=== PATIENT | female | born 1990 | race Caucasian/White ===

== ENCOUNTER → 2019-12-03 15:42 | Outpatient (BNVA) | payer BC, SELFPAY | PROVIDERS: Family Provider Nurse Practitioner Family; Referring Provider Nurse Practitioner; Visit Provider Orthopaedic Surgery | DX: S89.91XA Unspecified injury of right lower leg, initial encounter (principal); X50.1XXA Overexertion from prolonged static or awkward postures, initial encounter; M25.561 Pain in right knee | CPT/HCPCS: 73560; 73565 ==

== ENCOUNTER → 2020-02-02 11:25 | Outpatient (BNVA) | payer BC, SELFPAY | PROVIDERS: Family Provider Nurse Practitioner Family; Visit Provider Obstetrics & Gynecology | DX: Z12.4 Encounter for screening for malignant neoplasm of cervix (principal); Z20.2 Contact with and (suspected) exposure to infections with a predominantly sexual mode of transmission | CPT/HCPCS: 86592; 87491; 87591; 87661; 87806; 88175 ==

== ENCOUNTER 2020-03-14 20:46 | Emergency (ER) | payer BC, SELFPAY ==
--- NOTE | 2020-03-14 20:49 | XR_ITS ---
WS: [id number] Exam: XR chest 1V portable [id number] Date/Time of Exam: 03/14/2020 9:13 PM Reason For Exam: sob No priors. Findings: The lungs are clear and fully expanded. Costophrenic angles are sharp. No infiltrates. Bronchovascula r relief appears normal. Cardiac silhouette is unremarkable. Bony elements are intact. XR/XR chest 1V portable [id number] IMPRESSION: Unremarkable chest radiograph.
[2020-03-14 20:54] VITALS: BP 136/86; PULSE 87; RESP 17; O2SAT 93
[2020-03-14 20:55] VITALS: BP 138/83; PULSE 103; RESP 14; TEMP 37; O2SAT 98; BMI 39.1
--- NOTE | 2020-03-14 21:11 | ED_ITS ---
HPI - General Adult General: Chief complaint: General Medical Stated complaint: CONGESTION/HEAD COLD Time Seen by Provider: 03/14/20 20:50 Source: patient Mode of arrival: ambulatory Limitations: no limitations History of Present Illness: HPI narrative: Regine is a nice 29-year-old female who comes in complaining of chest tightness and shortness of breath. Patient states that she has been on anxiety medicines for quite some time and has recently been weaned off these due to side effects. She states that she believes this is just severe anxiety. Patient does state that she has a history of brain lesions which are being worked up and she is anxious about that. She denies any chest pain other than she states at times she feels like her chest is tight when she is having a bad panic attack. She denies any leg pain or swelling. She denies history of PE or DVT. Patient does state that she has been exposed to Covid but it is a very remote exposure. It was from her boss that was positive over 5 weeks ago but other than that she has had no known exposures. Patient states when her anxiety gets this bad she is asked to slow her breathing down which does help otherwise she is unaware of any exacerbating or alleviating factors. Associated symptoms: Reports chest pain and palpitations; Deny dyspnea, headache(s), nausea, rash, syncope or vomiting Review of Systems Const: Denies: fever(s) Eyes: Denies: change in vision or blurry vision ENMT: Denies: throat pain, hoarseness or swelling of lips/tongue Card: Reports: chest pain and palpitations; Denies: syncope, pre-syncope or dyspnea on exertion Resp: Denies: dyspnea, productive cough, non-productive cough, wheezing, change in phlegm color or hemoptysis GI: Denies: abdominal pain, nausea, vomiting or diarrhea : Denies: flank pain, dysuria, urinary frequency or urinary urgency Musc: Denies: neck pain, back pain or extremity pain Skin/Breast: Denies: rash or pruritus Neuro: Denies: headache(s), numbness in extremities, weakness in extremities or dizziness Al/Lymph: Denies: easy bruising, easy bleeding, petechiae or purpura All/Imm: Denies: urticaria or throat swelling PFS ED PFSH: Medical History Anxiety Surgical History Hx of dilation and curettage (~2006) D&C of uterus Hx of tubal ligation (~2013) Family History Mother Uterine cancer Ovarian cancer Family/Other Uterine cancer Maternal Aunt Ovarian cancer Maternal Aunt Grandmother Uterine cancer Maternal Breast cancer Ovarian cancer Social History Smoking and tobacco status: current some day smoker cigarettes Packs smoked per day: 0.5 Alcohol intake: current Alcohol intake frequency: holidays/special occasions only Physical Exam Const: COMMON NORMALS: no acute distress, patient oriented x3, no limitations and alert GENERAL APPEARANCE: cooperative HENMT: COMMON NORMALS: normocephalic, atraumatic, external ears normal, EAC's normal and Normal external nose present HEAD & SCALP: normal to inspection, normocephalic and atraumatic FACE & SINUS: normal facial exam and face symmetric NOSE: Normal external nose present and Normal nares present EXTERNAL EAR: Yes external ears normal EXTERNAL AUDITORY CANAL: EAC's normal MOUTH: Normal oral and palatal mucosa present, lip normal and tongue normal Eye: COMMON NORMALS: Equal, round and reactive pupils present and conjunctivae normal GENERAL EYE: appearance normal, both eyes and all related structures ALIGNMENT: Yes alignment normal PERIORBITAL: periorbital findings normal EYELID: eyelids normal CONJUNCTIVA: Yes conjunctivae normal SCLERA: sclerae normal PUPIL: Yes Equal, round and reactive pupils present Neck/C-Spine: COMMON NORMALS: full ROM, no lymphadenopathy, supple, no meningeal signs and no JVD GENERAL: Yes normal visual inspection and Yes trachea midline Chest: COMMONS NORMALS: normal inspection of the chest and normal palpation of entire chest wall Resp: COMMON NORMALS: normal respiratory effort, No retractions, No use of accessory muscles and clear to auscultation bilaterally EFFORT & INSPECTION: Yes able to speak in complete sentences and Yes symmetric chest movement AUSCULTATION: clear to auscultation bilaterally, no crackles, no rales, no rhonchi and no wheezes Cardio: COMMON NORMALS: no JVD, regular rate, regular rhythm, S1 normal heart sound present and S2 normal heart sound present RATE: regular rate RHYTHM: regular rhythm HEART SOUNDS: S1 normal heart sound present, S2 normal heart sound present, no click, no gallops, no murmurs and no rubs GI: COMMON NORMALS: Soft to palpation and No hepatosplenomegaly present PALPATION: Yes Soft to palpation, No Tenderness to palpation present (GI), No Guarding due to palpation present (GI), No Rigid due to palpation, Yes No hepatosplenomegaly present, No Hernia present, No Palpable mass present and No Pulsatile mass present : COMMON NORMALS: Yes no CVA tenderness BLADDER/KIDNEY EXAM: Yes no CVA tenderness EXTERNAL FEMALE EXAM: No Hernia present Back/Pelvis: COMMON NORMALS: no CVA tenderness, thoracic and lumbar spine normal to inspection, no thoracic nor lumbar tenderness and thoraco-lumbar ROM normal Extremity: COMMON NORMALS: normal to inspection, full ROM, capillary refill normal, no joint enlargement, no clubbing, cyanosis or edema and no calf tenderness Neuro: COMMON NORMALS: patient oriented x3, CN's II-XII intact bilaterally, moves all extremities, no focal motor deficits and no sensory deficits noted SENSORIUM/ORIENTATION: Yes alert MENINGEAL SIGNS: Yes no meningeal signs SPEECH: speech normal Psych: COMMON NORMALS: mental status grossly normal, Normal thought process present, cooperative, normal affect, speech normal and activity/motor behavior normal SPEECH: Yes normal speech THOUGHT PROCESS: Normal thought process present Skin: COMMON NORMALS: no rashes or lesions noted, turgor normal, no jaundice, no petechiae and no mottling GENERAL SKIN EXAM: no rashes or lesions noted and turgor normal Course Vital Signs: Vital signs: Vital Signs Temperature 98.4 F 03/14/20 22:48 Pulse Rate 87 03/14/20 22:48 Respiratory Rate 17 03/14/20 22:48 Blood Pressure 133/85 03/14/20 22:48 Pulse Oximetry 93 03/14/20 22:48 MDM - General Adult MDM Narrative: Medical decision making narrative: Regine is a nice 29-year-old female who comes in complaining of an anxiety attack. This is a typical anxiety attack for her. Her EKG and cardiac work appears been unremarkable. She is low risk per the Wells criteria and she has negative D-dimer. Patient is relieved to hear everything is okay that does in itself make her feel better. She would like to go home at this time. She states that she needs to follow-up with her doctor as the anxiety medication she is taking is not working. I am going to give her a prescription for Atarax to see how that helps. She denies any other complaints or concerns at this time. I see no sign of pulmonary molluscum, acute coronary syndrome, lethal arrhythmia or otherwise. Patient does agree to return should her symptoms change or worsen. Lab Data: Labs: Lab Results 03/14/20 03/14/20 03/14/20 Range/Units 21:43 21:43 21:46 WBC 9.7 (4.0-10.0) 10^3/ uL RBC 4.38 (4.1-5.3) 10^6/u L Hgb 13.2 (11.5-15.3) g/dL Hct 39.7 (37.0-47.0) % MCV 90.6 (81-99) fL MCH 30.1 (28.0-34.0) pg MCHC 33.2 (30.0-36.0) g/dL RDW 12.2 (12.1-15.1) % Plt Count 349 (130-400) 10^3/c mm MPV 9.0 (7.4-10.4) fL Neut % (Auto) 70.7 % Lymph % (Auto) 21.9 % [place] % (Auto) 6.2 % Eos % (Auto) 0.6 % Baso % (Auto) 0.4 % Neut # (Auto) 6.86 (1.8-7.7) 10^3/u L Lymph # (Auto) 2.1 (0.8-4.8) 10^3/u L [place] # (Auto) 0.6 (0.2-0.9) 10^3/u L Eos # (Auto) 0.1 (0.0-0.8) 10^3/u L Baso # (Auto) 0.0 (0.0-0.1) 10^3/u L Nucleated RBC % (a uto) 0 % Nucleated RBCs # 0.0 /100WBC D-Dimer (0-0.59) ug/mIFE U Sodium (136-145) mmol/L Potassium (3.5-5.1) mmol/L Chloride (98-107) mmol/L Carbon Dioxide (22-29) mmol/L Anion Gap (5-19) BUN (6-20) mg/dL Creatinine (0.5-0.9) mg/dL GFR Calculation (90-130) mL/min Glucose (65-115) mg/dL Calculated Osmolal ity (285-295) mOsm/k g Calcium (8.5-10.5) mg/dL Magnesium (1.7-2.3) mg/dL Total Bilirubin (0.15-1.2) mg/dL AST (0-32) U/L ALT (0-33) U/L Alkaline Phosphata se (35-105) IU/L Total Protein (6.6-8.7) g/dL Albumin (3.5-5.2) g/dL Globulin (1.3-4.6) g/dL HCG, Qual (Negative) Urine Color Straw (Yellow) Urine Appearance Hazy A (CLEAR) Urine pH 5 (5-7) Ur Specific Gravit y 1.015 (1.005-1.030) Urine Protein Neg (Negative) Urine Glucose (UA) Norm (Normal) Urine Ketones Negative (Negative) Urine Blood 3+ H (Negative) Urine Nitrate Negative (Negative) Urine Bilirubin Neg (Negative) Urine Urobilinogen Norm (Negative) mg/dL Ur Leukocyte Nica ase 1+ H (Negative) Urine RBC 5-10 H (0-2) /hpf Urine WBC 0-4 H (0-5) /hpf Ur Squamous Epith Cells 5-10 H (0-5) /hpf Amorphous Sediment Not Reportable Urine Bacteria Trace (NONE) /hpf Influenza Type A A g Negative (Negative) Influenza Type B A g Negative (Negative) SARS-CoV-2 Ag (Rap id) (Negative) 03/14/20 03/14/20 03/14/20 Range/Units 21:46 21:46 21:46 WBC (4.0-10.0) 10^3/ uL RBC (4.1-5.3) 10^6/u L Hgb (11.5-15.3) g/dL Hct (37.0-47.0) % MCV (81-99) fL MCH (28.0-34.0) pg MCHC (30.0-36.0) g/dL RDW (12.1-15.1) % Plt Count (130-400) 10^3/c mm MPV (7.4-10.4) fL Neut % (Auto) % Lymph % (Auto) % [place] % (Auto) % Eos % (Auto) % Baso % (Auto) % Neut # (Auto) (1.8-7.7) 10^3/u L Lymph # (Auto) (0.8-4.8) 10^3/u L [place] # (Auto) (0.2-0.9) 10^3/u L Eos # (Auto) (0.0-0.8) 10^3/u L Baso # (Auto) (0.0-0.1) 10^3/u L Nucleated RBC % (a uto) % Nucleated RBCs # /100WBC D-Dimer (0-0.59) ug/mIFE U Sodium 138 (136-145) mmol/L Potassium 3.4 L (3.5-5.1) mmol/L Chloride 101 (98-107) mmol/L Carbon Dioxide 25 (22-29) mmol/L Anion Gap 15.4 (5-19) BUN 14 (6-20) mg/dL Creatinine 0.7 (0.5-0.9) mg/dL GFR Calculation 99.6 (90-130) mL/min Glucose 102 (65-115) mg/dL Calculated Osmolal ity 287 (285-295) mOsm/k g Calcium 9.6 (8.5-10.5) mg/dL Magnesium 2.1 (1.7-2.3) mg/dL Total Bilirubin 0.2 (0.15-1.2) mg/dL AST 22 (0-32) U/L ALT 25 (0-33) U/L Alkaline Phosphata se 91 (35-105) IU/L Total Protein 8.0 (6.6-8.7) g/dL Albumin 5.0 (3.5-5.2) g/dL Globulin 3.0 (1.3-4.6) g/dL HCG, Qual Negative (Negative) Urine Color (Yellow) Urine Appearance (CLEAR) Urine pH (5-7) Ur Specific Gravit y (1.005-1.030) Urine Protein (Negative) Urine Glucose (UA) (Normal) Urine Ketones (Negative) Urine Blood (Negative) Urine Nitrate (Negative) Urine Bilirubin (Negative) Urine Urobilinogen (Negative) mg/dL Ur Leukocyte Nica ase (Negative) Urine RBC (0-2) /hpf Urine WBC (0-5) /hpf Ur Squamous Epith Cells (0-5) /hpf Amorphous Sediment Urine Bacteria (NONE) /hpf Influenza Type A A g (Negative) Influenza Type B A g (Negative) SARS-CoV-2 Ag (Rap id) Negative (Negative) 03/14/20 Range/Units 21:46 WBC (4.0-10.0) 10^3/ uL RBC (4.1-5.3) 10^6/u L Hgb (11.5-15.3) g/dL Hct (37.0-47.0) % MCV (81-99) fL MCH (28.0-34.0) pg MCHC (30.0-36.0) g/dL RDW (12.1-15.1) % Plt Count (130-400) 10^3/c mm MPV (7.4-10.4) fL Neut % (Auto) % Lymph % (Auto) % [place] % (Auto) % Eos % (Auto) % Baso % (Auto) % Neut # (Auto) (1.8-7.7) 10^3/u L Lymph # (Auto) (0.8-4.8) 10^3/u L [place] # (Auto) (0.2-0.9) 10^3/u L Eos # (Auto) (0.0-0.8) 10^3/u L Baso # (Auto) (0.0-0.1) 10^3/u L Nucleated RBC % (a uto) % Nucleated RBCs # /100WBC D-Dimer <= 0.27 (0-0.59) ug/mIFE U Sodium (136-145) mmol/L Potassium (3.5-5.1) mmol/L Chloride (98-107) mmol/L Carbon Dioxide (22-29) mmol/L Anion Gap (5-19) BUN (6-20) mg/dL Creatinine (0.5-0.9) mg/dL GFR Calculation (90-130) mL/min Glucose (65-115) mg/dL Calculated Osmolal ity (285-295) mOsm/k g Calcium (8.5-10.5) mg/dL Magnesium (1.7-2.3) mg/dL Total Bilirubin (0.15-1.2) mg/dL AST (0-32) U/L ALT (0-33) U/L Alkaline Phosphata se (35-105) IU/L Total Protein (6.6-8.7) g/dL Albumin (3.5-5.2) g/dL Globulin (1.3-4.6) g/dL HCG, Qual (Negative) Urine Color (Yellow) Urine Appearance (CLEAR) Urine pH (5-7) Ur Specific Gravit y (1.005-1.030) Urine Protein (Negative) Urine Glucose (UA) (Normal) Urine Ketones (Negative) Urine Blood (Negative) Urine Nitrate (Negative) Urine Bilirubin (Negative) Urine Urobilinogen (Negative) mg/dL Ur Leukocyte Ncia ase (Negative) Urine RBC (0-2) /hpf Urine WBC (0-5) /hpf Ur Squamous Epith Cells (0-5) /hpf Amorphous Sediment Urine Bacteria (NONE) /hpf Influenza Type A A g (Negative) Influenza Type B A g (Negative) SARS-CoV-2 Ag (Rap id) (Negative) Imaging Data^: CXR: Attestation: I personally reviewed and interpreted this imaging study as follows: My impression: No acute cardiopulmonary findings. EKG Data^: EKG 1: Attestation: I personally reviewed and interpreted this EKG as follows: EKG interpretation date: 03/14/20 EKG interpretation time: 21:38 Interpretation: Normal sinus rhythm with first-degree AV block, normal QTC, normal axis, PVCs noted, otherwise no acute ST or T wave changes. Discharge Plan Discharge Patient Disposition: Home Clinical Impression: Anxiety Condition: Stable Prescriptions: New hydroxyzine HCl 25 mg tablet 25 mg PO Q6H PRN (Reason: anxiety) Qty: 30 RF: 0 No Action escitalopram oxalate 5 mg tablet 5 mg PO DAILY RF: 0 Discharge Orders: Discharge Order (Routine); Ordered 03/14/20 Ordered By: Beverly Webb Referrals: [facility], [Staff Physician] - 1-3 days Discharge Diet: Usual diet Discharge Activity: Resume usual activity Patient Instructions: Anxiety (ED) Activity Restrictions/Additional Instructions: Please return to the ER immediately for any of the signs or symptoms listed on your discharge instruction sheets, worsening/changing of your symptoms, you are not getting better as quickly as expected, or for ANY other cause or concerns. If your symptoms change or worsen in any way please return to the ER immediately for recheck. Discharge Date/Time: 03/14/20 22:48 Coding Level of Care Code ED Mechanical Service Specialist for Chg Fwd Exam Comprehensive
--- NOTE | 2020-03-14 21:13 | ECG_ITS ---
[facility] Test Date: 2020-03-14 Pat Name: Regine Ortiz Department: Room: Gender: Female Change Number Operator: : 1990 Requested By: Beverly Sadler Order Number: [id number] Wilkinson MD: Carmen Ashby M.D. Measurements Intervals [place] Rate: 85 P: 55 NV: 232 QRS: 87 QRSD: 103 T: 49 QT: 386 QTc: 460 Interpretive Statements SINUS RHYTHM WITH FIRST DEGREE AV BLOCK WITH OCCASIONAL VENTRICULAR PREMATURE COMPLEXES WARNING: DATA QUALITY MAY AFFECT INTERPRETATION No previous ECG available for comparison Electronically Signed On 03-15-2020 7:15:01 CDT by Carmen Ashby M.D. [email or web address]
[2020-03-14] MEDS: sodium chloride 0.9% 1,000 ML 999 ML IV (21:25)
[2020-03-14 21:58] LABS: Basophils % 0.4 %; Eosinophils # 0.1 10^3/uL (0.0-0.8); Eosinophils % 0.6 %; Hematocrit 39.7 % (37.0-47.0); Hemoglobin 13.2 g/dL (11.5-15.3); Lymphocytes # 2.1 10^3/uL (0.8-4.8); Lymphocytes % 21.9 %; Mean Corpuscular HGB Conc 33.2 g/dL (30.0-36.0); Mean Corpuscular Hemoglobin 30.1 pg (28.0-34.0); Mean Corpuscular Volume 90.6 fL (81-99); Monocytes # 0.6 10^3/uL (0.2-0.9); Monocytes % 6.2 %; Neutrophils # 6.86 10^3/uL (1.8-7.7); Neutrophils % 70.7 %; Nucleated Red Blood Cells % 0 %; Platelet Count 349 10^3/cmm (130-400); Red Blood Count 4.38 10^6/uL (4.1-5.3); Red Cell Distribution Width 12.2 % (12.1-15.1); White Blood Count 9.7 10^3/uL (4.0-10.0)
[2020-03-14 22:13] LABS: Add Urine Microscopic? YES; Bilirubin Urine Neg (Negative); Blood Urine 3+ (Negative); Glucose Urine UA Norm (Normal); Ketones Urine Negative (Negative); Leukocyte Esterase Urine 1+ (Negative); Nitrate Urine Negative (Negative); Protein Urine Neg (Negative); Specific Gravity, Urine 1.015 (1.005-1.030); Urine Appearance Hazy (CLEAR); Urine Color Straw (Yellow); Urobilinogen Urine Norm (Negative); pH Urine 5 (5-7)
[2020-03-14 22:22] LABS: HCG, Serum Qual Negative (Negative)
[2020-03-14 22:24] LABS: Add Urine Culture? No; Bacteria Urine TRACE /hpf; WBC Urine 0-4 /hpf (0-5)
[2020-03-14 22:25] LABS: Alanine Aminotransferase 25 U/L (0-33); Alkaline Phosphatase 91 IU/L (35-105); Anion Gap 15.4 (5-19); Aspartate Amino Transferase 22 U/L (0-32); Blood Urea Nitrogen 14 mg/dL (6-20); Calcium 9.6 mg/dL (8.5-10.5); Carbon Dioxide 25 mmol/L (22-29); Chloride 101 mmol/L (98-107); Glomerular Filtration Rate 99.6 mL/min (90-130); Glucose 102 mg/dL (65-115); Magnesium 2.1 mg/dL (1.7-2.3); Osmolality Calculated 287 mOsm/kg (285-295); Potassium 3.4 mmol/L (3.5-5.1); Sodium 138 mmol/L (136-145); Total Bilirubin 0.2 mg/dL (0.15-1.2)
[2020-03-14 22:27] LABS: D Dimer <= 0.27 ug/mIFEU (0-0.59)
[2020-03-14 22:30] LABS: Influenza A by IFA Negative (Negative); Influenza B by IFA Negative (Negative)
[2020-03-14 22:31] LABS: SARS Covid-2 Antigen Negative (Negative)
[2020-03-14 22:48] VITALS: BP 133/85; PULSE 87; RESP 17; TEMP 36.9; O2SAT 93
--- NOTE | 2020-03-14 22:52 | PC.NURSE ---
Patient discharged before lorazepam prescription entered.
== END 2020-03-14 22:48 | disposition home or self-care (01) ==
PROVIDERS: Emergency Provider Emergency Medicine
DX: F41.9 Anxiety disorder, unspecified (principal); F17.210 Nicotine dependence, cigarettes, uncomplicated
CPT/HCPCS: 12345; 71045; 80053; 81001; 83735; 84703; 85025; 85378; 87040; 87426; 87804; 93005; 96360; 99284; J7030

== ENCOUNTER 2020-05-25 11:54 | Emergency (ER) | payer BC, SELFPAY ==
[2020-05-25] VITALS (7 sets, daily range): BP systolic 129–145; BP diastolic 73–87; PULSE 77–119; RESP 14–18; TEMP 36.8; O2SAT 97–100; BMI 40.5
--- NOTE | 2020-05-25 12:05 | W.ED.COVID ---
HPI - COVID General: Chief Complaint: COVID symptoms Stated Complaint: body aches, congestion, chills Time Seen by Provider: 05/25/20 12:04 Source: patient Mode of arrival: ambulatory Limitations: no limitations Triage information: Has fever, cough or shortness of breath. Exposure to COVID + person last 14 days History of Present Illness: HPI Narrative: Patient is a 30-year-old female who presents to ED today with a complaint of right lower chest pain, shortness of breath, chills, and body aches. She has had positive COVID exposure. She had a rapid test performed recently which was negative. Patient tells me she was seen by urgent care and referred to the emergency department. Patient tells me she does have a history of anxiety and states she is not sure if her symptoms are related to anxiety or because of COVID. She has not been running fevers. She is an otherwise healthy 30-year-old. MD complaint: reported COVID exposure COVID 19 common symptoms: positive chills, non-productive cough, dyspnea, fatigue and body aches; negative fever(s), headache(s), throat pain, nausea, vomiting or diarrhea COVID 19 other sytmptoms: positive chest pain COVID Results: SARS-CoV-2 Antigen (Rapid) Negative (Negative) 03/14/20 21:46 03/14/20 SARS-CoV-2 RNA (RT-PCR) Pending 05/25/20 12:55 05/25/20 Review of Systems Const: Reports: chills, body aches and fatigue; Denies: fever(s), change in appetite, change in weight or malaise ENMT: Denies: throat pain or odynophagia Card: Reports: chest pain and orthopnea; Denies: palpitations, irregular heart rhythm, edema, swelling of feet/ankles, lightheadedness, syncope, pre-syncope, dyspnea on exertion or leg pain with exertion Resp: Reports: dyspnea and non-productive cough; Denies: hemoptysis GI: Denies: abdominal pain, nausea, vomiting or diarrhea : Denies: flank pain, difficulty voiding, dysuria, urinary frequency or urinary urgency Musc: Denies: neck pain, back pain, extremity pain, extremity swelling, joint pain or joint swelling Skin/Breast: Denies: rash Neuro: Denies: headache(s), numbness in extremities, weakness in extremities or sensory changes PFSH ED PFSH: Medical History (Updated 03/14/20 @ 22:39 by Beverly Webb) Anxiety Surgical History Hx of dilation and curettage (~2006) D&C of uterus Hx of tubal ligation (~2013) Family History Mother Uterine cancer Ovarian cancer Family/Other Uterine cancer Maternal Aunt Ovarian cancer Maternal Aunt Grandmother Uterine cancer Maternal Breast cancer Ovarian cancer Social History (Updated 05/25/20 @ 12:04 by Avtar Pickard RN) Smoking and tobacco status: current some day smoker cigarettes Packs smoked per day: 0.5 Alcohol intake: current Alcohol intake frequency: holidays/special occasions only Alcohol type: wine Substance/Drug Use: never Physical Exam Const: COMMON NORMALS: no acute distress, average body habitus, patient oriented x3, no limitations, healthy appearing, alert and well nourished HENMT: COMMON NORMALS: normocephalic and atraumatic HEAD & SCALP: normocephalic and atraumatic FACE & SINUS: normal facial exam THROAT: posterior oropharynx normal, tonsils normal and uvula midline Neck/C-Spine: COMMON NORMALS: no lymphadenopathy Resp: COMMON NORMALS: normal respiratory effort and clear to auscultation bilaterally EFFORT & INSPECTION: Yes able to speak in complete sentences AUSCULTATION: clear to auscultation bilaterally Cardio: COMMON NORMALS: regular rate and regular rhythm RATE: regular rate RHYTHM: regular rhythm GI: COMMON NORMALS: Normal to inspection, nondistended, normoactive bowel sounds present, Soft to palpation, non-tender, No hepatosplenomegaly present and no masses PALPATION: Yes Soft to palpation and Yes No hepatosplenomegaly present : COMMON NORMALS: Yes no CVA tenderness BLADDER/KIDNEY EXAM: Yes no CVA tenderness Back/Pelvis: COMMON NORMALS: no CVA tenderness Neuro: COMMON NORMALS: patient oriented x3 SENSORIUM/ORIENTATION: Yes alert Psych: COMMON NORMALS: mental status grossly normal, cooperative and speech normal APPEARANCE: Yes grossly normal SPEECH: Yes normal speech Skin: COMMON NORMALS: no rashes or lesions noted GENERAL SKIN EXAM: no rashes or lesions noted Course Vital Signs: Vital signs: Vital Signs Temperature 98.2 F 05/25/20 11:58 Pulse Rate 77 05/25/20 12:26 Respiratory Rate 18 05/25/20 13:26 Blood Pressure 145/87 05/25/20 12:26 Pulse Oximetry 100 05/25/20 12:27 MDM - COVID MDM Narrative: Medical decision making narrative: Patient appears non-ill and nontoxic. She is in no respiratory distress. She is not tachycardic, tachypneic or hypoxic. Her CXR is normal. Obtained PCR testing on today's visit. Labs are nonconcerning at this time. Patient does not qualify for monoclonal antibody treatment. Recommend conservative management at home and quarantine. Lab Data: Labs: Lab Results 05/25/20 05/25/20 Range/Units 14:00 14:00 WBC 7.0 (4.0-10.0) 10^3/ uL RBC 4.65 (4.1-5.3) 10^6/u L Hgb 14.0 (11.5-15.3) g/dL Hct 42.8 (37.0-47.0) % MCV 92.0 (81-99) fL MCH 30.1 (28.0-34.0) pg MCHC 32.7 (30.0-36.0) g/dL RDW 12.1 (12.1-15.1) % Plt Count 342 (130-400) 10^3/c mm MPV 8.9 (7.4-10.4) fL Neut % (Auto) 73.0 % Lymph % (Auto) 17.1 % [place] % (Auto) 7.6 % Eos % (Auto) 1.3 % Baso % (Auto) 0.6 % Neut # (Auto) 5.09 (1.8-7.7) 10^3/u L Lymph # (Auto) 1.2 (0.8-4.8) 10^3/u L [place] # (Auto) 0.5 (0.2-0.9) 10^3/u L Eos # (Auto) 0.1 (0.0-0.8) 10^3/u L Baso # (Auto) 0.0 (0.0-0.1) 10^3/u L Nucleated RBC % (a uto) 0 % Nucleated RBCs # 0.0 /100WBC Sodium 136 (136-145) mmol/L Potassium 4.3 (3.5-5.1) mmol/L Chloride 102 (98-107) mmol/L Carbon Dioxide 25 (22-29) mmol/L Anion Gap 13.3 (5-19) BUN 11 (6-20) mg/dL Creatinine 0.7 (0.5-0.9) mg/dL GFR Calculation 98.9 (90-130) mL/min Glucose 107 (65-115) mg/dL Calculated Osmolal ity 282 L (285-295) mOsm/k g Calcium 9.6 (8.5-10.5) mg/dL Total Bilirubin 0.4 (0.15-1.2) mg/dL AST 22 (0-32) U/L ALT 24 (0-33) U/L Alkaline Phosphata se 86 (35-105) IU/L Total Protein 7.4 (6.6-8.7) g/dL Albumin 4.5 (3.5-5.2) g/dL Globulin 2.9 (1.3-4.6) g/dL Imaging Data: CXR: Radiologist's impression: [address] [place] [address] XRay Report Signed Patient: Regine Ortiz #: [id number] : 1990Acct#:[id number] Age/Sex: 30 / FADM Date: 05/25/20 [facility] Attending Dr: Ordering Provider/Ordering MD: Ginger Trujillo Date of Service: 05/25/20 Procedure(s): XR chest 1V portable [id number] Accession Number(s): [id number] Report Number: [id number] WS: [id number] Portable AP upright chest, 05/25/2020 Clinical Data: SOB, chest pain Comparison: Portable chest, 03/14/2020. Findings: No nodules, masses or effusions are seen. The heart is normal. The pulmonary vascularity is not increased. No pneumonia or pneumothorax is seen. There is a small electronic device overlying the upper chest. XR/XR chest 1V portable [id number] Impression: Negative chest. Dictated By:Natalya Farrar MD Signed By:Natalya Farrar MDSigned Date/Time:05/25/20 1301 DD/ 1300 COVID Results: SARS-CoV-2 Antigen (Rapid) Negative (Negative) 03/14/20 21:46 03/14/20 SARS-CoV-2 RNA (RT-PCR) Pending 05/25/20 12:55 05/25/20 Discharge Plan Discharge Prescriptions: No Action escitalopram oxalate 5 mg tablet 5 mg PO DAILY@0800 RF: 0 Mucinex See Rx Instructions .ROUTE .COMPLEX RF: 0 Coding Level of Care Code ED Cad Engineer for Chg Fwd Exam Comprehensive
--- NOTE | 2020-05-25 12:35 | XR_ITS ---
WS: [id number] Portable AP upright chest, 05/25/2020 Clinical Data: SOB, chest pain Comparison: Portable chest, 03/14/2020. Findings: No nodules, masses or effusions are seen. The heart is normal. The pulmonary vascularity is not increased. No pneumonia or pneumothorax is seen. There is a small electronic device overlying th e upper chest. XR/XR chest 1V portable [id number] Impression: Negative chest.
[2020-05-25 14:12] LABS: Basophils % 0.6 %; Eosinophils # 0.1 10^3/uL (0.0-0.8); Eosinophils % 1.3 %; Hematocrit 42.8 % (37.0-47.0); Lymphocytes # 1.2 10^3/uL (0.8-4.8); Lymphocytes % 17.1 %; Mean Corpuscular HGB Conc 32.7 g/dL (30.0-36.0); Mean Corpuscular Hemoglobin 30.1 pg (28.0-34.0); Mean Platelet Volume 8.9 fL (7.4-10.4); Monocytes # 0.5 10^3/uL (0.2-0.9); Monocytes % 7.6 %; Neutrophils # 5.09 10^3/uL (1.8-7.7); Nucleated Red Blood Cells % 0 %; Platelet Count 342 10^3/cmm (130-400); Red Blood Count 4.65 10^6/uL (4.1-5.3); Red Cell Distribution Width 12.1 % (12.1-15.1)
[2020-05-25 14:57] LABS: Alanine Aminotransferase 24 U/L (0-33); Albumin Level 4.5 g/dL (3.5-5.2); Alkaline Phosphatase 86 IU/L (35-105); Aspartate Amino Transferase 22 U/L (0-32); Blood Urea Nitrogen 11 mg/dL (6-20); Calcium 9.6 mg/dL (8.5-10.5); Carbon Dioxide 25 mmol/L (22-29); Chloride 102 mmol/L (98-107); Creatinine Clr Calc Pharmacy 151.8601; Globulin 2.9 g/dL (1.3-4.6); Glomerular Filtration Rate 98.9 mL/min (90-130); Glucose 107 mg/dL (65-115); Osmolality Calculated 282 mOsm/kg (285-295); Sodium 136 mmol/L (136-145); Total Bilirubin 0.4 mg/dL (0.15-1.2); Total Protein 7.4 g/dL (6.6-8.7)
[2020-05-25 14:58] LABS: Anion Gap 13.3 (5-19); Potassium 4.3 mmol/L (3.5-5.1)
[2020-05-26 16:08] LABS: Quest SARS-CoV-2 RNA NOT DETECTED (NOT DETECTED)
--- NOTE | 2020-05-27 10:45 | PC.NURSE ---
pt notified of negative COVID results
== END 2020-05-25 15:18 | disposition home or self-care (01) ==
PROVIDERS: Emergency Provider Physician Assistant; PCP Nurse Practitioner
DX: R07.9 Chest pain, unspecified (principal); F17.210 Nicotine dependence, cigarettes, uncomplicated
CPT/HCPCS: 12345; 71045; 80053; 85025; 87635; 99282; 99283

== ENCOUNTER → 2020-08-16 10:26 | Outpatient (BNVA) | payer BC, SELFPAY | PROVIDERS: PCP Nurse Practitioner; Referring Provider Nurse Practitioner; Visit Provider Specialist | DX: G37.9 Demyelinating disease of central nervous system, unspecified (principal); G43.909 Migraine, unspecified, not intractable, without status migrainosus; R20.0 Anesthesia of skin; R20.2 Paresthesia of skin; G47.30 Sleep apnea, unspecified; R42 Dizziness and giddiness; F17.210 Nicotine dependence, cigarettes, uncomplicated | CPT/HCPCS: 99205 ==

== ENCOUNTER → 2021-01-31 12:06 | Outpatient (BNVA) | payer BC, SELFPAY | PROVIDERS: PCP Nurse Practitioner; Visit Provider Nurse Practitioner Family | DX: Z20.828 Contact with and (suspected) exposure to other viral communicable diseases (principal); J06.9 Acute upper respiratory infection, unspecified; Z20.822 Contact with and (suspected) exposure to COVID-19 | CPT/HCPCS: 87426 ==

== ENCOUNTER → 2021-02-22 14:00 | Outpatient (BNVA) | payer BC, SELFPAY | PROVIDERS: PCP Nurse Practitioner; Visit Provider Nurse Practitioner Family | DX: F41.9 Anxiety disorder, unspecified (principal); R00.2 Palpitations; R53.83 Other fatigue; L65.9 Nonscarring hair loss, unspecified; I10 Essential (primary) hypertension | CPT/HCPCS: 80053; 82306; 82607; 83036; 84439; 84443; 84481 ==

== ENCOUNTER → 2021-04-04 09:55 | Outpatient (BNVA) | payer BC, SELFPAY | PROVIDERS: PCP Nurse Practitioner Family; Visit Provider Nurse Practitioner Family | DX: R30.0 Dysuria (principal) | CPT/HCPCS: 81000 ==

== ENCOUNTER → 2021-04-06 09:25 | Outpatient (BNVA) | payer BC, SELFPAY | PROVIDERS: PCP Nurse Practitioner Family; Visit Provider Family Medicine Adult Medicine | DX: Z20.822 Contact with and (suspected) exposure to COVID-19 (principal); R05.8 Other specified cough | CPT/HCPCS: 87635 ==

== ENCOUNTER 2021-04-12 13:05 | Outpatient (CLI) | payer BC, SELFPAY ==
[2021-04-12 13:16] VITALS: BP 139/92; PULSE 118; RESP 18; TEMP 36.5; O2SAT 96; BMI 48.2
[2021-04-12 13:44] VITALS: BP 129/82; PULSE 109; RESP 18; TEMP 37.1; O2SAT 99
[2021-04-12 14:42] VITALS: BP 118/79; PULSE 103; RESP 18; TEMP 36.7; O2SAT 98
== END 2021-04-12 13:06 | disposition home or self-care (01) ==
LOC: OPS 13:06
PROVIDERS: PCP Nurse Practitioner Family; Visit Provider Nurse Practitioner Family
DX: U07.1 COVID-19 (principal)
CPT/HCPCS: 96365

== ENCOUNTER 2021-09-16 05:18 | Emergency (ER) | payer BC, SELFPAY ==
[2021-09-16 05:19] VITALS: BP 148/100; PULSE 111; RESP 18; TEMP 36.8; O2SAT 100; BMI 38.5
--- NOTE | 2021-09-16 05:35 | PC.NURSE ---
Pt. states that she seen her doctor today for the dental infection and that she takes medication for anxiety already. I asked if she asked for new medication for her anxiety and she said no. Pt. states that on the ride to the hospital in the ambulance she had a panic attack.
--- NOTE | 2021-09-16 05:38 | ED_ITS ---
HPI - Anxiety General: Chief Complaint: Anxiety Stated Complaint: Anxiety Time Seen by Provider: 09/16/21 05:24 Source: patient History of Present Illness: 31-year-old female who states she has had problems with mouth infections for the past couple of months. She has been on antibiotics for time she says. She was last on clindamycin finishing a week ago. She notes that she felt good for a few days, but then began to get mouth pain and throbbing along with shaking chills at times a couple of days ago. She was in her car on the way to urgent care this morning, when her heart began to race. She notes that she got short of breath. She believes she had a panic attack. She called an ambulance. Her symptoms are improved on arrival. MD complaint: anxiety Onset (ago): minute(s) Symptoms: dyspnea and palpitations Severity: moderate Quality: constant Place: other History of similar episodes: Yes Provoking factors: other Relieving factors: deep breaths Exacerbating factors: nothing Associated symptoms: Reports fever(s), nausea and short of breath; Deny chest pain, confusion, syncope, vomiting or weakness Review of Systems Const: Reports: fever(s) ENMT: Reports: oral sores and dental pain; Denies: throat pain or swelling of lips/tongue Card: Denies: chest pain or syncope GI: Reports: nausea; Denies: vomiting Musc: Denies: neck pain Neuro: Denies: confusion Psych: Reports: anxiety [facility] ED PFSH: Medical History Anxiety Cough with exposure to COVID-19 virus Pos COVID test 04/06/2021 COVID-19 Hypertension Surgical History Hx of dilation and curettage (~2006) D&C of uterus Hx of tubal ligation (~2013) Family History Mother Uterine cancer Ovarian cancer Family/Other Uterine cancer Maternal Aunt Ovarian cancer Maternal Aunt Grandmother Uterine cancer Maternal Breast cancer Ovarian cancer Social History Smoking and tobacco status: former smoker Second hand smoke exposure: No Smoking risk assessment/counseling performed?: Yes Tobacco counseling given: provider counseling and counseling >3 minutes Other tobacco screening/counseling details: Working on reducing tobacco use. Alcohol intake: current Alcohol intake frequency: holidays/special occasions only Alcohol type: wine Caregiver/support person: No Lives independently: Yes Household members: family Current occupational status: employed History of recent travel: No Physical Exam Const: GENERAL APPEARANCE: cooperative; not ill appearing and not frail appearing HENMT: COMMON NORMALS: normocephalic, atraumatic and Normal external nose present HEAD & SCALP: normocephalic and atraumatic FACE & SINUS: normal facial exam and face symmetric NOSE: Normal external nose present and Normal nares present MOUTH: lip normal and tongue normal TEETH & GINGIVA: Yes abnormal tooth and associated gingiva (Mild swelling noted around left bottom posterior molar) THROAT: posterior oropharynx normal Eye: COMMON NORMALS: Equal, round and reactive pupils present and EOMs intact bilaterally PUPIL: Yes Equal, round and reactive pupils present Resp: COMMON NORMALS: normal respiratory effort, No use of accessory muscles and clear to auscultation bilaterally AUSCULTATION: clear to auscultation bilaterally Cardio: COMMON NORMALS: regular rate and regular rhythm RATE: regular rate RHYTHM: regular rhythm GI: COMMON NORMALS: Normal to inspection, nondistended, normoactive bowel sounds present Course Vital Signs: Vital signs: Vital Signs Temperature 98.2 F 09/16/21 05:19 Pulse Rate 111 H 09/16/21 05:19 Respiratory Rate 18 09/16/21 05:19 Blood Pressure 138/98 09/16/21 06:31 Pulse Oximetry 98 09/16/21 06:31 MDM - Anxiety Medical Decision Making Patient with self-proclaimed symptoms of panic attack. Her potassium is mildly low. White blood cell count is 10.5. CRP is minimally elevated. Labs are otherwise not remarkable. Patient has minimal evidence of. Periodontitis. she will be covered with antibiotics, and allowed discharge Lab Data : 09/16/21 05:25 09/16/21 05:25 Laboratory Results WBC 10.5 10^3/uL (4.0-10.0) H 09/16/21 05:25 RBC 4.49 10^6/uL (4.1-5.3) 09/16/21 05:25 Hgb 13.2 g/dL (11.5-15.3) 09/16/21 05:25 Hct 39.2 % (37.0-47.0) 09/16/21 05:25 MCV 87.3 fl (81-99) 09/16/21 05:25 MCH 29.4 pg (28.0-34.0) 09/16/21 05:25 MCHC 33.7 g/dL (30.0-36.0) 09/16/21 05:25 RDW 12.0 % (12.1-15.1) L 09/16/21 05:25 Plt Count 290 10^3/cmm (130-400) 09/16/21 05:25 MPV 9.2 fL (7.4-10.4) 09/16/21 05:25 Neut % (Auto) 68.1 % 09/16/21 05:25 Lymph % (Auto) 23.6 % 09/16/21 05:25 [place] % (Auto) 7.0 % 09/16/21 05:25 Eos % (Auto) 0.7 % 09/16/21 05:25 Baso % (Auto) 0.3 % 09/16/21 05:25 Neut # (Auto) 7.15 10^3/uL (1.8-7.7) 09/16/21 05:25 Lymph # (Auto) 2.5 10^3/uL (0.8-4.8) 09/16/21 05:25 Jennings # (Auto) 0.7 10^3/uL (0.2-0.9) 09/16/21 05:25 Eos # (Auto) 0.1 10^3/uL (0.0-0.8) 09/16/21 05:25 Baso # (Auto) 0.0 10^3/uL (0.0-0.1) 09/16/21 05:25 Nucleated RBC % (auto) 0 % 09/16/21 05:25 Nucleated RBCs # 0.0 /100WBC 09/16/21 05:25 Sodium 138 mmol/L (136-145) 09/16/21 05:25 Potassium 3.4 mmol/L (3.5-5.1) L 09/16/21 05:25 Chloride 101 mmol/L (98-107) 09/16/21 05:25 Carbon Dioxide 21 mmol/L (22-29) L 09/16/21 05:25 Anion Gap 19.4 (5-19) H 09/16/21 05:25 BUN 12 mg/dL (6-20) 09/16/21 05:25 Creatinine 0.7 mg/dL (0.5-0.9) 09/16/21 05:25 GFR Calculation 98.3 mL/min (90-130) 09/16/21 05:25 Glucose 117 mg/dL (65-115) H 09/16/21 05:25 Calculated Osmolality 287 mOsm/kg (285-295) 09/16/21 05:25 Calcium 8.9 mg/dL (8.5-10.5) 09/16/21 05:25 Total Bilirubin 0.4 mg/dL (0.15-1.2) 09/16/21 05:25 AST 15 U/L (0-32) 09/16/21 05:25 ALT 18 U/L (0-33) 09/16/21 05:25 Alkaline Phosphatase 87 IU/L (35-105) 09/16/21 05:25 C-Reactive Protein 8.4 mg/L (0.0-4.9) H 09/16/21 05:25 Total Protein 7.9 g/dL (6.6-8.7) 09/16/21 05:25 Albumin 5.1 g/dL (3.5-5.2) 09/16/21 05:25 Globulin 2.8 g/dL (1.3-4.6) 09/16/21 05:25 Procalcitonin 0.08 ng/mL (0-0.5) 09/16/21 05:25 Urine Color Yellow (Yellow) 09/16/21 05:54 Urine Appearance Clear (CLEAR) 09/16/21 05:54 Urine pH 6.5 (5-7) 09/16/21 05:54 Ur Specific [place] 1.015 (1.005-1.030) 09/16/21 05:54 Urine Protein Neg (Negative) 09/16/21 05:54 Urine Glucose (UA) Norm (Normal) 09/16/21 05:54 Urine Ketones Negative (Negative) 09/16/21 05:54 Urine Blood Neg (Negative) 09/16/21 05:54 Urine Nitrate Negative (Negative) 09/16/21 05:54 Urine Bilirubin Neg (Negative) 09/16/21 05:54 Urine Urobilinogen Norm mg/dL (Negative) 09/16/21 05:54 Ur Leukocyte Esterase Negative (Negative) 09/16/21 05:54 Discharge Plan Discharge Patient Disposition: Home Clinical Impression: Periodontitis, Panic attack Condition: Stable Prescriptions: Changed clindamycin HCl 150 mg capsule 300 mg PO TID 14 Days Qty: 63 0RF No Action levocetirizine [Allergy Relief (levocetirizin)] 5 mg tablet 5 mg PO DAILY Qty: 30 0RF escitalopram oxalate [Lexapro] 10 mg tablet 10 mg PO DAILY Qty: 90 0RF Rx Instructions: 1/2 tablet daily for 1 week then 1 full tablet. hydrochlorothiazide 12.5 mg tablet 12.5 mg PO QAM Qty: 30 0RF buspirone 15 mg tablet 15 mg PO TID 90 Days Qty: 270 0RF Discharge Orders: Discharge ED (Routine); Ordered 09/16/21 Ordered By: Cameron Brantley Referrals: Carmen Guzman FNP-C [Primary Care Provider] - 4-7 days Patient Instructions: Panic Attack (ED), Periodontal Disease (DC) Activity Restrictions/Additional Instructions: Return for worsening pain, swelling, fever greater than 100 despite 3-4 doses of antibiotics, any other concerning symptoms. 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
--- NOTE | 2021-09-16 05:41 | ECG_ITS ---
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 Measurements Intervals [place] Rate: 113 P: 53 IA: 199 QRS: 91 QRSD: 105 T: 33 QT: 347 QTc: 477 Interpretive Statements SINUS TACHYCARDIA BORDERLINE RIGHT AXIS DEVIATION [QRS AXIS > 90] ABNORMAL RHYTHM ECG Compared to ECG 03/14/2020 21:38:59 Sinus rhythm no longer present First degree AV block no longer present Electronically Signed On 09-16-2021 8:16:39 CDT by Antony Rodriguez M.D. [id number] f
[2021-09-16 05:47] LABS: Basophils % 0.3 %; Eosinophils # 0.1 10^3/uL (0.0-0.8); Eosinophils % 0.7 %; Hematocrit 39.2 % (37.0-47.0); Hemoglobin 13.2 g/dL (11.5-15.3); Lymphocytes # 2.5 10^3/uL (0.8-4.8); Lymphocytes % 23.6 %; Mean Corpuscular HGB Conc 33.7 g/dL (30.0-36.0); Mean Corpuscular Hemoglobin 29.4 pg (28.0-34.0); Mean Corpuscular Volume 87.3 fl (81-99); Mean Platelet Volume 9.2 fL (7.4-10.4); Monocytes # 0.7 10^3/uL (0.2-0.9); Neutrophils # 7.15 10^3/uL (1.8-7.7); Neutrophils % 68.1 %; Nucleated Red Blood Cells % 0 %; Platelet Count 290 10^3/cmm (130-400); Red Blood Count 4.49 10^6/uL (4.1-5.3); White Blood Count 10.5 10^3/uL (4.0-10.0)
[2021-09-16] MEDS: LORazepam 2 mg/mL INJ 1 mL 1 MG IVP (05:52)
[2021-09-16 05:55] LABS: Add Urine Microscopic? NO; Charge for UA Resulting for Rev
[2021-09-16 06:02] LABS: Alanine Aminotransferase 18 U/L (0-33); Albumin Level 5.1 g/dL (3.5-5.2); Alkaline Phosphatase 87 IU/L (35-105); Anion Gap 19.4 (5-19); Aspartate Amino Transferase 15 U/L (0-32); Blood Urea Nitrogen 12 mg/dL (6-20); C Reactive Protein 8.4 mg/L (0.0-4.9); Calcium 8.9 mg/dL (8.5-10.5); Carbon Dioxide 21 mmol/L (22-29); Chloride 101 mmol/L (98-107); Creatinine Clr Calc Pharmacy 151.3691; Globulin 2.8 g/dL (1.3-4.6); Glomerular Filtration Rate 98.3 mL/min (90-130); Glucose 117 mg/dL (65-115); Osmolality Calculated 287 mOsm/kg (285-295); Potassium 3.4 mmol/L (3.5-5.1); Sodium 138 mmol/L (136-145); Total Bilirubin 0.4 mg/dL (0.15-1.2); Total Protein 7.9 g/dL (6.6-8.7)
[2021-09-16 06:08] LABS: Bilirubin Urine Neg (Negative); Blood Urine Neg (Negative); Glucose Urine UA Norm (Normal); Ketones Urine Negative (Negative); Leukocyte Esterase Urine Negative (Negative); Nitrate Urine Negative (Negative); Protein Urine Neg (Negative); Specific Gravity, Urine 1.015 (1.005-1.030); Urine Appearance Clear (CLEAR); Urine Color Yellow (Yellow); Urobilinogen Urine Norm (Negative); pH Urine 6.5 (5-7)
[2021-09-16 06:09] LABS: Procalcitonin 0.08 ng/mL (0-0.5)
[2021-09-16 06:31] VITALS: BP 138/98; O2SAT 98
== END 2021-09-16 06:34 | disposition home or self-care (01) ==
PROVIDERS: Emergency Provider Emergency Medicine; PCP Nurse Practitioner Family
DX: F41.0 Panic disorder [episodic paroxysmal anxiety] (principal); Z87.891 Personal history of nicotine dependence; K05.30 Chronic periodontitis, unspecified
CPT/HCPCS: 80053; 81003; 84145; 85025; 86140; 93005; 96374; 99283; J2060

== ENCOUNTER → 2021-10-09 09:59 | Outpatient (BNVA) | payer BC, SELFPAY | PROVIDERS: PCP Nurse Practitioner Family; Visit Provider Nurse Practitioner Family | DX: R00.0 Tachycardia, unspecified (principal); I10 Essential (primary) hypertension; F41.9 Anxiety disorder, unspecified; R73.9 Hyperglycemia, unspecified; E03.9 Hypothyroidism, unspecified; T50.2X5A Adverse effect of carbonic-anhydrase inhibitors, benzothiadiazides and other diuretics, initial encounter; K05.30 Chronic periodontitis, unspecified; F32.9 Major depressive disorder, single episode, unspecified; R42 Dizziness and giddiness | CPT/HCPCS: 80053; 83036; 84439; 84443 ==

== ENCOUNTER → 2021-10-19 10:10 | Outpatient (BNVA) | payer BC, SELFPAY | PROVIDERS: PCP Nurse Practitioner Family; Visit Provider Obstetrics & Gynecology | DX: Z01.419 Encounter for gynecological examination (general) (routine) without abnormal findings (principal); R68.82 Decreased libido; R53.83 Other fatigue | CPT/HCPCS: 84403; 84443; 88175 ==

== ENCOUNTER 2021-12-21 10:38 | Outpatient (CLI) | payer BC, SELFPAY ==
--- NOTE | 2021-12-21 11:00 | USCV_ITS ---
Regine Ortiz Age: 31 Gender: F : 1990 Exam Date: 12/21/2021 11:35 Ordering Phys: Myrna Morel-Jordan SENIOR Technologist: Rodriguez Naidu Exam Location: [facility] [place] Indication: Tachycardia BP: 110 / 70 HR: 76 Rhythm: Sinus Technical Quality: Adequate MEASUREMENTS (Male / Female) Normal Values 2D ECHO LV Diastolic Diameter PLAX 4.5 cm 4.2 - 5.9 / 3.9 - 5.3 cm LV Systolic Diameter PLAX 3.1 cm IVS Diastolic Thickness 0.7 cm 0.6 - 1.0 / 0.6 - 0.9 cm IVS Systolic Thickness 1.0 cm LVPW Diastolic Thickness 1.0 cm 0.6 - 1.0 / 0.6 - 0.9 cm LVPW Systolic Thickness 1.3 cm LVOT Diameter 2.1 cm LV Ejection Fraction 2D Teich 58.8 % LV Ejection Fraction MOD 2C 68.7 % LV Ejection Fraction 2C AL 70.1 % LA Diameter 3.2 cm LA Width 3.4 cm LA Height 4.0 cm RA Width 3.2 cm RA Height 3.8 cm Aorta at Sinotubular Diameter 2.9 cm IVC Diameter 1.4 cm M-MODE Aortic Annulus Diameter 3.2 cm LA Ao Ratio MM 1.0 MV E Point Septal Separation 0.9 cm DOPPLER AV Peak Velocity 119.0 cm/s LVOT Peak Velocity 83.0 cm/s AV Area Cont Eq vti 2.3 cm squared AV Area Cont Eq pk 2.3 cm squared MV Peak Velocity 106.0 cm/s MV Area PHT 4.3 cm squared Mitral E to A Ratio 1.1 MV E' Velocity 46.5 cm/s Mitral E to MV E' Ratio 1.8 Mitral E to LV E' Lateral Ratio 6.6 Mitral E to LV E' Septal Ratio 1.0 TR Peak Velocity 222.8 cm/s TR Peak Gradient 19.9 mmHg TR Mean Velocity 184.7 cm/s TR Mean Gradient 14.3 mmHg TR Velocity Time Integral 59.3 cm Right Atrial Pressure 3.0 mmHg Pulmonary Artery Systolic Pressu 22.9 mmHg RV Acceleration Time 0.1 s RV Ejection Time 0.3 s RV AcT/ET 0.5 FINDINGS Left Ventricle Normal left ventricular size, systolic function and wall thickness, with no regional wall motion abnormalities. Left ventricular ejection fraction is estimated at 65 %. Normal diastolic function. Right Ventricle Normal right ventricular size and systolic function. Right ventricular systolic pressure 23 mmHg. Right Atrium Normal right atrial size. Left Atrium Normal left atrial size. Mitral Valve Structurally normal mitral valve. No mitral valve stenosis. Trace mitral valve regurgitation. Aortic Valve Structurally normal trileaflet aortic valve. No aortic valve stenosis. No aortic valve regurgitation. Tricuspid Valve Structurally normal tricuspid valve. No tricuspid valve stenosis. Trace to mild tricuspid valve regurgitation. Pulmonic Valve Pulmonic valve not well visualized. No pulmonary valve stenosis. Trace pulmonary valve regurgitation. Pericardium No pericardial effusion. Aorta Normal size aortic root and proximal ascending aorta. IVC Normal IVC dimension with >50% respiratory change of the inferior vena cava. CONCLUSIONS 1. Normal left ventricular size, systolic function and wall thickness, with no regional wall motion abnormalities. Left ventricular ejection fraction is estimated at 65 %. Normal diastolic function. 2. Normal right ventricular size and systolic function. 3. Pulmonary artery pressure estimated at 23 mmHg. 4. Trace to mild tricuspid valve regurgitation. 5. No prior similar studies to compare. Carmen Ashby MD (Electronically Signed) Final Date: 21 December 2021 16:24 S
--- NOTE | 2021-12-21 11:45 | US_ITS ---
WS: [id number] THYROID ULTRASOUND HISTORY: R00.0 - Tachycardia, unspecified COMPARISON: None available. Right lobe: 1.1 cm x 1.7 cm x 3.5 cm (w x ap x l). Volume: 3.4 cm3. Normal size and echotexture. No significant are dominant nodules are present. Left lobe: 1.1 cm x 1.4 cm x 5.1 cm (w x ap x l). Volume: 4.4 cm3. Normal size gland. There are 2 colloid cysts within the LEFT thyroid. No solid mass. The largest sarah oid cyst measures 5 x 3 x 5 mm in the lower pole. No increased vascularity. Isthmus: 0.5 cm. US/US thyroid [id number] IMPRESSION: 1. No solid thyroid nodule. 2. Benign LEFT thyroid colloid cysts.
== END 2021-12-21 10:39 | disposition home or self-care (01) ==
LOC: RAD 10:39
PROVIDERS: PCP Nurse Practitioner Family; Visit Provider Nurse Practitioner Family
DX: R00.0 Tachycardia, unspecified (principal); E04.1 Nontoxic single thyroid nodule; I07.1 Rheumatic tricuspid insufficiency
CPT/HCPCS: 76536; 93306

== ENCOUNTER → 2022-01-31 13:50 | Outpatient (BNVA) | payer BC, SELFPAY | PROVIDERS: PCP Nurse Practitioner Family; Visit Provider Orthopaedic Surgery | DX: S89.91XA Unspecified injury of right lower leg, initial encounter (principal); X58.XXXA Exposure to other specified factors, initial encounter | CPT/HCPCS: 73560; 73565 ==

== ENCOUNTER → 2022-03-19 08:48 | Outpatient (BNVA) | payer BC, SELFPAY | PROVIDERS: PCP Nurse Practitioner Family; Visit Provider Nurse Practitioner Family | DX: Z00.00 Encounter for general adult medical examination without abnormal findings (principal); I10 Essential (primary) hypertension; E78.5 Hyperlipidemia, unspecified | CPT/HCPCS: 80053; 80061 ==

== ENCOUNTER → 2022-04-27 10:57 | Outpatient (BNVA) | payer BC, SELFPAY | PROVIDERS: PCP Nurse Practitioner Family; Visit Provider Nurse Practitioner Family | DX: F32.A Depression, unspecified (principal); E66.9 Obesity, unspecified; Z80.41 Family history of malignant neoplasm of ovary | CPT/HCPCS: 86304 ==

== ENCOUNTER → 2022-05-30 08:58 | Outpatient (BNVA) | payer BC, SELFPAY | PROVIDERS: PCP Nurse Practitioner Family; Visit Provider Nurse Practitioner Family | DX: E78.1 Pure hyperglyceridemia (principal) | CPT/HCPCS: 82533 ==

== ENCOUNTER 2022-07-16 11:32 | Outpatient (CLI) | payer BC, SELFPAY ==
--- NOTE | 2022-07-16 11:42 | XR_ITS ---
WS: [id number] KUB, AP view, 07/16/2022 Clinical Data: R10.9 - Unspecified abdominal pain Comparison: None. Findings: No abnormal intraabdominal masses or calcifications are seen. There is no dilatated small bowel or ev idence of obstruction. There is a moderate amount of fecal material in the colon. XR/XR KUB [id number] Impression: Negative KUB.
== END 2022-07-16 11:33 | disposition home or self-care (01) ==
PROVIDERS: PCP Nurse Practitioner Family; Visit Provider Nurse Practitioner Family
DX: R10.9 Unspecified abdominal pain (principal)
CPT/HCPCS: 74018

== ENCOUNTER → 2022-11-08 11:57 | Outpatient (BNVA) | payer BC, SELFPAY | PROVIDERS: PCP Nurse Practitioner Family | DX: R39.9 Unspecified symptoms and signs involving the genitourinary system (principal); B37.31 Acute candidiasis of vulva and vagina | CPT/HCPCS: 81000 ==

== ENCOUNTER → 2022-11-30 11:51 | Outpatient (BNVA) | payer BC, SELFPAY | PROVIDERS: PCP Nurse Practitioner Family; Visit Provider Nurse Practitioner Family | DX: E78.1 Pure hyperglyceridemia (principal); E66.9 Obesity, unspecified; R00.0 Tachycardia, unspecified | CPT/HCPCS: 80053; 80061; 84443 ==

== ENCOUNTER → 2023-04-25 10:43 | Outpatient (BNVA) | payer BC, SELFPAY | PROVIDERS: PCP Nurse Practitioner Family; Visit Provider Nurse Practitioner Family | DX: E78.1 Pure hyperglyceridemia (principal); F41.9 Anxiety disorder, unspecified | CPT/HCPCS: 80053; 80061 ==

== ENCOUNTER 2023-06-25 13:57 | Outpatient (CLI) | payer OTHER, SELFPAY ==
--- NOTE | 2023-06-25 14:05 | MM_ITS ---
WS: [id number] DIAGNOSTIC BILATERAL DIGITAL BREAST TOMOSYNTHESIS MAMMOGRAPHY WITH CAD LEFT breast ultrasound, limited HISTORY: MASS OF LEFT BREAST COMPARISON: 12/10/2022, 12/06/2022 TECHNIQUE: Bilateral craniocaudad, mediolateral oblique, and mediolateral views are submitted with to mosynthesis and SM. Spot compression LEFT CC. Computer aided detection utilized. Breast composition: There are scattered areas of fibroglandular density. Normal fibroglandular densit ies. Palpable marker in the upper outer quadrant of the LEFT breast. There is no corresponding abnorm ality posterior to the marker. The RIGHT breast is negative. LEFT breast ultrasound, limited. Ultrasound is directed to 1:00, 5 cm from the nipple. There is no ultrasound abnormality identified. IMPRESSION: MM/[place] [id number] BI-RADS: 2-Benign FOLLOW UP: 1 Year Follow-up
== END 2023-06-25 13:58 | disposition home or self-care (01) ==
LOC: RAD 13:58
PROVIDERS: PCP Nurse Practitioner Family; Visit Provider Family Medicine
DX: N63.21 Unspecified lump in the left breast, upper outer quadrant (principal); R92.323 Mammographic fibroglandular density, bilateral breasts
CPT/HCPCS: 76642; 77062; G0279

== ENCOUNTER → 2025-01-01 11:49 | Outpatient (BNVA) | payer OTHER, SELFPAY | PROVIDERS: PCP Nurse Practitioner Family; Visit Provider Nurse Practitioner Family | DX: E78.5 Hyperlipidemia, unspecified (principal); R53.83 Other fatigue; I10 Essential (primary) hypertension | CPT/HCPCS: 80053; 80061; 84439; 84443; 85025 ==

== ENCOUNTER 2025-01-06 08:33 | Outpatient (CLI) | payer OTHER, SELFPAY ==
--- NOTE | 2025-01-06 08:30 | FLR_ITS ---
PROCEDURE INFORMATION: Exam: FL Esophagus Exam date and time: 01/06/2025 8:57 AM Age: 34 years old Clinical indication: Dysphagia (difficulty swallowing); Phase not specified; Food and drink getting caught in throat for last 4 months, happens at random with all kinds of food; Additional info: R13.10 - dysphagia, unspecified TECHNIQUE: Imaging protocol: Radiologic examination of the esophagus. Guided with fluoroscopy. Exam supervised by facility personnel. COMPARISON: CT angio chest PE protcl [id number] 07/10/2018 6:38 PM RADIATION DOSE METRICS: Fluoroscopy time (seconds): Not reported Number of fluoro spot images: 38 Reference air kerma (FREDERIC): Not reported FINDINGS: Esophagus: Normal. The esophagus is normal in course and caliber, and is well distended. No narrowing or stricture. The gastroesophageal junction is normally positioned. Esophageal peristalsis is normal. FL/FL barium swallow [id number] IMPRESSION: Unremarkable esophagus.
--- NOTE | 2025-01-06 12:11 | US_ITS ---
WS: [id number] ULTRASOUND THYROID TECHNIQUE: Ultrasound of the thyroid. CLINICAL INFORMATION: THYROID TENDERNESS/DISORDER OF THYROID COMPARISON: 2021 FINDINGS: Thyroid: Right and left thyroid lobes are normal in size with heterogeneous echotexture. A few tiny colloid cysts. No suspicious dominant nodules. Right thyroid lobe: 4.5 cm x 1.2 cm x 1.2 cm Left thyroid lobe: 4.3 cm x 1.3 cm x 1.2 cm. Isthmus: 0.4 mm. Cervical lymphadenopathy: None. US/US thyroid [id number] IMPRESSION: 1. A few tiny colloid cysts. No suspicious dominant nodules. 2. No changes compared to previous.
== END 2025-01-06 08:34 | disposition home or self-care (01) ==
PROVIDERS: PCP Nurse Practitioner Family; Visit Provider Nurse Practitioner Family
DX: R13.10 Dysphagia, unspecified (principal); E04.1 Nontoxic single thyroid nodule; E07.9 Disorder of thyroid, unspecified
CPT/HCPCS: 74220; 76536

== ENCOUNTER 2025-02-15 12:28 | Outpatient (CLI) | payer OTHER, SELFPAY | END 2025-02-15 12:29 | disposition home or self-care (01) | LOC: SLEEP 12:29 | PROVIDERS: PCP Nurse Practitioner Family; Visit Provider Nurse Practitioner Family | DX: G47.30 Sleep apnea, unspecified (principal) | CPT/HCPCS: 94762 ==

== ENCOUNTER → 2025-05-06 08:34 | Outpatient (BNVA) | payer OTHER, SELFPAY | PROVIDERS: PCP Nurse Practitioner Family; Visit Provider Orthopaedic Surgery | DX: M17.0 Bilateral primary osteoarthritis of knee (principal); M76.9 Unspecified enthesopathy, lower limb, excluding foot | CPT/HCPCS: 73560; 73565 ==